=== PATIENT | male | born 1980 | race African-American/Black ===

== ENCOUNTER 2020-11-23 13:38 | Emergency (ER) | payer BC ==
[~2020-11-23] VITALS: Ht 185.4 cm; Wt 78.2 kg
[2020-11-23 13:46] VITALS: BP 138/65
[2020-11-23] MEDS ORDERED: LIDOCAINE W/EPINEPHRINE 1% 20ML VIAL SC ONE (14:30)
[2020-11-23] MEDS ORDERED: DERMABOND TOPICAL SKIN ADHESIVE TOP ONE (14:50)
== END 2020-11-23 15:17 | disposition home or self-care (01) ==
LOC: M ED 13:38
DX: S61.511A Laceration without foreign body of right wrist, initial encounter (principal); X58.XXXA Exposure to other specified factors, initial encounter; Y92.89 Other specified places as the place of occurrence of the external cause; Y93.89 Activity, other specified; Y99.9 Unspecified external cause status; F17.200 Nicotine dependence, unspecified, uncomplicated; F12.10 Cannabis abuse, uncomplicated